=== PATIENT | female | born 1985 | race American Indian/Alaskan Native ===

== ENCOUNTER 2017-03-12 11:36 | Emergency (ER) | payer MEDICAID ==
[2017-03-12 13:04] VITALS: BP 141/83
[2017-03-12 13:32] LABS: Hematocrit 40.7 % (30.3-42.9); Hemoglobin 12.9 gm/dl (10.1-14.3); Mean Corpuscular Volume 75 fl (79-97); Red Blood Count 5.45 M/mm3 (3.65-5.03)
[2017-03-12 13:33] LABS: Basophils % (Auto) 0.5 % (0.0-1.8); Eosinophils % (Auto) 1.8 % (0.0-4.3); Mean Corpuscular HGB Conc 32 % (30-34); Platelet Count 281 K/mm3 (140-440)
[2017-03-12 13:35] LABS: Mean Corpuscular Hemoglobin 24 pg (28-32)
--- NOTE | 2017-03-12 14:08 | Emergency Department Report ---
Chief Complaint: Dizziness Stated Complaint: DIZZINESS Time Seen by Provider: 03/12/17 13:45 - HPI History of Present Illness: Patient reports that she's been having dizziness for 4 days. She says she vomited for 3 days. No vomiting today. She states that she is having nausea. She is complaining a headache to the right side of her forehead that is pounding in and 6 out of 10. Last menstrual period was 02/28/2017. Denies any fever or chills. Denies any urinary burning frequency or urgency. She denies any medical history. Denies any nasal congestion or clogged ear sensation. She denies similar episode in the past. - ROS Review of Systems: All systems are negative unless stated in HPI above. - Exam Vital Signs: Vital Signs 03/12/17 12:58 Temperature 97.8 F Pulse Rate 61 Respiratory 18 Rate Blood Pressure 141/83 O2 Sat by Pulse 100 Oximetry Physical Exam: Gen.: This is a 31-year-old female well-nourished well-developed in no acute distress. HEENT: Head: normocephalic atraumatic. Nose: Nasal mucosa congested and erythema with clear drainage. Ears: Bilateral TM congested without erythema. Bilateral EAC without any swelling redness or drainage. Cardiovascular: S1, S2 and no audible murmur regular rate and rhythm EKG shows patient with sinus rhythm and with sinus arrhythmia at 69 bpm. Mini-Neuro: GCS of 15, speech is clear, normal gait, no facial droop. She is alert and oriented 3 MSE screening note: Focused history and physical exam performed. Due to findings the following was ordered:see MDM ED Medical Decision Making - Lab Data Result diagrams: 03/12/17 13:09 03/12/17 13:09 - Medical Decision Making MDM: Patient screened by provider in triage area. Appropriate protocol initiated and patient to be seen in main ED by Provider ED Disposition for MSE Condition: Stable Referrals: PRIMARY CARE, [Primary Care Provider] - 3-5 Days
[2017-03-12 14:16] LABS: Anion Gap 18 mmol/L; BUN/Creatinine Ratio 8.57; Blood Urea Nitrogen 6 mg/dL (7-17); Calcium 9.4 mg/dL (8.4-10.2); Carbon Dioxide 24 mmol/L (22-30); Chloride 102.1 mmol/L (98-107); Glucose 106 mg/dL (65-100); Potassium 3.7 mmol/L (3.6-5.0); Sodium 140 mmol/L (137-145)
[2017-03-12 15:15] LABS: Bilirubin,Urine NEG (Negative); Blood,Urine NEG (Negative); Ketones,Urine NEG (Negative); Leukocyte Esterase,Urine TR (Negative); Mucus,Urine FEW /HPF; Nitrite,Urine NEG (Negative); Protein,Urine <15 mg/dL mg/dL (Negative); Urobilinogen,Urine < 2.0 mg/dL (<2.0)
[2017-03-12 15:30] LABS: Alanine Aminotransferase 16 units/L (7-56); Albumin 4.4 g/dL (3.9-5); Albumin/Globulin Ratio 1.2 %; Alkaline Phosphatase 42 units/L (35-129); Total Protein 8.2 g/dL (6.3-8.2)
[2017-03-12 15:33] LABS: Bilirubin,Direct < 0.2 mg/dL (0-0.2); Bilirubin,Indirect 0.1 mg/dL
--- NOTE | 2017-03-12 16:27 | Cat Scan Report ---
CRANIAL CT SCAN: Headache; dizziness. Serial contiguous axial images were obtained through the cranium. Intravenous contrast material was not administered. The ventricles are normal in size and appearance. There is no mass effect or midline shift. No areas of abnormally increased or decreased attenuation are seen. No mass lesion is seen. The mastoid air cells and visualized portions of the sinuses are normal. IMPRESSION: Cranial CT scan within normal limits.
== END 2017-03-12 21:00 | disposition left against medical advice (07) ==
LOC: ED 11:36
DX: R42 Dizziness and giddiness (principal); R11.0 Nausea; R51 Headache; Z53.21 Procedure and treatment not carried out due to patient leaving prior to being seen by health care provider
CPT/HCPCS: 36415; 70450; 80048; 80074; 81001; 84703; 85025; 93005; 93010